=== PATIENT | male | born 1940 | race Caucasian/White ===

== ENCOUNTER → 2018-12-13 | Outpatient (CLI) | payer OTHER | END | disposition home or self-care (01) | LOC: RAH 09:19 → EDSTATUS 10:30 | PROVIDERS: ATTEND Family Medicine | DX: E04.2 Nontoxic multinodular goiter (principal); I12.9 Hypertensive chronic kidney disease with stage 1 through stage 4 chronic kidney disease, or unspecified chronic kidney disease; N18.3 Chronic kidney disease, stage 3 (moderate); J44.9 Chronic obstructive pulmonary disease, unspecified | CPT/HCPCS: 78014; A9516 ==

== ENCOUNTER 2020-04-03 11:00 | Inpatient (IN) | payer OTHER ==
[~2020-04-03] VITALS: Ht 188 cm; Wt 107.7 kg
[2020-04-03 11:36] LABS: BASOPHILS % (AUTO) 0.7 % (0.0-5.0); EOSINOPHILS % (AUTO) 1.7 % (0.0-8.0); HEMATOCRIT 43.4 % (42-54); LYMPHOCYTES % (AUTO) 15.4 % (21.0-51.0); MEAN CORPUSCULAR HEMOGLOBIN 30.6 pg (27.0-33.0); MEAN CORPUSCULAR HGB CONC 33.2 g/dL (32.0-36.0); MEAN CORPUSCULAR VOLUME 92.3 fL (79-99); MONOCYTES % (AUTO) 5.6 % (3.0-13.0); NEUTROPHILS % (AUTO) 76.1 % (40.0-77.0); PLATELET COUNT (AUTO) 142 K/uL (130-400); RED CELL DISTRIBUTION WIDTH 12.9 % (11.0-15.5); WHITE BLOOD COUNT (AUTO) 5.9 K/uL (4.8-10.8)
[2020-04-03 11:43] LABS: CREATININE 1.5 mg/dL (0.5-1.5); POTASSIUM 4.5 mmol/L (3.5-5.1)
[2020-04-03 11:47] LABS: ALBUMIN 3.8 g/dL (3.5-5.0); BILIRUBIN,TOTAL 0.8 mg/dL (0.2-1.0)
[2020-04-03] MEDS ORDERED: HEPARIN 25000 UNITS/250 ML D5W 250 ML IV ONE (14:49)
[2020-04-03] MEDS ORDERED: MORPHINE SULFATE 2 MG/ML 1ML SYG IV PRN (15:45)
[2020-04-03] MEDS ORDERED: ACETAMINOPHEN 325 MG TAB PO PRN ×2 (15:45)
[2020-04-03] MEDS ORDERED: ONDANSETRON HCL 4 MG/2 ML VIAL IV PRN (15:45)
[2020-04-03 16:16] LABS: CHOLESTEROL 136 mg/dL (<200); HDL CHOLESTEROL 95 mg/dL (29-71); LDL DIRECT 69 mg/dL (0-99); TRIGLYCERIDES 189 mg/dL (30-200)
[2020-04-03 20:25] VITALS: BP 152/91
--- NOTE | 2020-04-03 20:25 | NUR ---
ADMIT PATIENT ARRIVED FROM ED VIA BED. PATIENT AAOX3 WITH SOME SOB UPON MOVING TO ROOM BED. PATIENT WAS THEN PLACE ON OXYGEN VIA NASAL CANNULA. SATURATION AT 96 % WITH O2 LUNG SOUNDS TO RIGHT LUNG CLEAR, LEFT LUNG PARTIAL SOUNDS. PATIENT DOES HAVE HX OF LEFT UPPER AND PARTIAL LOWER LOBECTOMY. PATIENT BEING ADMITTED FOR A PE TO RIGHT LOWER LOBE. ED STAFF STARTED PATIENT ON HEPARIN DRIP WHICH WAS RUNNING AT 16.99 ML/HR. PATIENT WAS ORIENTED TO ROOM AND HOSPITAL. ALL QUESTIONS AND CONCERNS ADDRESSED.
[2020-04-03] MEDS: FAMOTIDINE/PF 20 MG/2 ML VIAL IV SCH (21:00)
[2020-04-03] MEDS ORDERED: EMPA10TA PO (21:10)
[2020-04-03] MEDS ORDERED: SIMV10TA97 PO (21:10)
[2020-04-03] MEDS ORDERED: LATA7.5D OU (21:10)
[2020-04-03] MEDS ORDERED: CETI10TA57 PO (21:10)
[2020-04-03] MEDS ORDERED: ALOG12.52 PO (21:10)
[2020-04-03] MEDS ORDERED: TRAZ-187 PO (21:10)
[2020-04-03] MEDS ORDERED: DORZ10DR19 OS (21:10)
[2020-04-03] MEDS ORDERED: SAXA2.5T PO (21:10)
[2020-04-03] MEDS ORDERED: BUDE10.26 IH (21:10)
[2020-04-03] MEDS ORDERED: CYAN100099 PO (21:10)
[2020-04-03 21:26] LABS: INR 1.02 (0.85-1.15)
[2020-04-03 21:34] LABS: PARTIAL THROMBOPLASTIN TIME > 120.0 SEC (26.3-35.5)
[2020-04-03] MEDS ORDERED: HEPARIN 25000 UNITS/250 ML D5W 250 ML IV SCH (22:30)
[2020-04-03 23:32] VITALS: BP 130/72
[2020-04-04 04:05] VITALS: BP 126/59
[2020-04-04 04:56] LABS: BASOPHILS % (AUTO) 0.3 % (0.0-5.0); EOSINOPHILS % (AUTO) 3.8 % (0.0-8.0); HEMATOCRIT 43.4 % (42-54); LYMPHOCYTES % (AUTO) 18.6 % (21.0-51.0); MEAN CORPUSCULAR HEMOGLOBIN 30.4 pg (27.0-33.0); MEAN CORPUSCULAR HGB CONC 32.5 g/dL (32.0-36.0); MEAN CORPUSCULAR VOLUME 93.5 fL (79-99); MONOCYTES % (AUTO) 8.5 % (3.0-13.0); NEUTROPHILS % (AUTO) 68.6 % (40.0-77.0); PLATELET COUNT (AUTO) 139 K/uL (130-400); RED BLOOD CELL COUNT(AUTO) 4.64 MIL/uL (4.50-6.20); WHITE BLOOD COUNT (AUTO) 5.8 K/uL (4.8-10.8)
[2020-04-04 05:07] LABS: ALBUMIN 3.5 g/dL (3.5-5.0); BILIRUBIN,TOTAL 0.8 mg/dL (0.2-1.0); CREATININE 1.3 mg/dL (0.5-1.5); POTASSIUM 5.2 mmol/L (3.5-5.1); TOTAL PROTEIN, SERUM 6.6 g/dL (6.0-8.3)
[2020-04-04 05:30] LABS: HEMOGLOBIN A1C 6.6 % (4.0-6.0)
[2020-04-04 07:00] VITALS: BP 151/92
[2020-04-04] MEDS: FAMOTIDINE/PF 20 MG/2 ML VIAL IV SCH ×2 (10:36→20:29)
[2020-04-04 11:00] VITALS: BP 134/77
--- NOTE | 2020-04-04 15:40 | NUR ---
DCP: [facility] met with pt who lives at home with Tiffani Argueta [phone]. Pt reports he is independent, pt uses [employer] for long distance related to his SOB and has no in home care services. Pt is seen at [facility] for medical care and meds. Plan is home at de. CM to follow and assist as needed Addendum: 04/04/20 at 1543 by JEVON GARCIA Amended: Links added.
[2020-04-04 16:00] VITALS: BP 151/91
--- NOTE | 2020-04-04 16:45 | NUR ---
PER DR. PIERRE D/C HEPARIN DRIP PT WILL START PO BLOOD THINNER ELIQUIS AT 9PM.
[2020-04-04] MEDS ORDERED: IPRATROPIUM/ALBUTEROL SULFATE 3 ML SOLUTION IH PRN (18:00)
[2020-04-04 19:40] VITALS: BP 141/85
[2020-04-04] MEDS: BUDESONIDE 0.5 MG/2 ML INH IH SCH (20:13)
[2020-04-04] MEDS: APIXABAN 5 MG TABLET PO SCH (20:29)
[2020-04-04] MEDS: DORZOLAMIDE HCL 2% 10ML DROPS OS SCH (20:29)
[2020-04-04] MEDS ORDERED: CETIRIZINE HCL 5 MG TABLET PO SCH (21:00)
[2020-04-04] MEDS ORDERED: SIMVASTATIN 10 MG TABLET PO SCH (21:00)
[2020-04-04] MEDS ORDERED: LATANOPROST 2.5 ML DROPS OU SCH (21:00)
[2020-04-04] MEDS ORDERED: TRAZODONE HCL 100 MG TABLET PO SCH (21:00)
[2020-04-04] MEDS: ALBUTEROL SULFATE 0.083% 2.5 MG/3 ML INH IH SCH (23:48)
[2020-04-04 23:52] VITALS: BP 161/76
[2020-04-05 04:05] VITALS: BP 125/70
--- NOTE | 2020-04-05 04:13 | NUR ---
PATIENT A/OX3, DENIES CHEST PAIN, SOB WITH EXERTION, ON 2L VIA NC. NO S/S OF BLEEDING. WILL CONTINUE TO MONITOR.
[2020-04-05] MEDS: ALBUTEROL SULFATE 0.083% 2.5 MG/3 ML INH IH SCH ×2 (05:39→11:06)
[2020-04-05] MEDS: BUDESONIDE 0.5 MG/2 ML INH IH SCH (05:46)
[2020-04-05 07:56] VITALS: BP 146/76
[2020-04-05] MEDS: FAMOTIDINE/PF 20 MG/2 ML VIAL IV SCH (08:56)
[2020-04-05] MEDS: APIXABAN 5 MG TABLET PO SCH (08:56)
[2020-04-05] MEDS ORDERED: ALOGLIPTIN BENZOATE 12.5 MG PO SCH (09:00)
[2020-04-05] MEDS ORDERED: EMPAGLIFLOZIN 10 MG PO SCH (09:00)
[2020-04-05] MEDS ORDERED: CYANOCOBALAMIN (VITAMIN B-12) 1,000 MCG TABLET PO SCH (09:00)
[2020-04-05] MEDS: DORZOLAMIDE HCL 2% 10ML DROPS OS SCH (09:00)
[2020-04-05] MEDS ORDERED: LINAGLIPTIN 5 MG TABLET PO SCH (09:00)
[2020-04-05 12:00] VITALS: BP 149/78
[2020-04-05] MEDS ORDERED: APIX5TAB PO (12:07)
[2020-04-05 12:28] LABS: INR 1.01 (0.85-1.15); PARTIAL THROMBOPLASTIN TIME 27.9 SEC (26.3-35.5); PROTHROMBIN TIME 10.9 SEC (9.6-11.6)
--- NOTE | 2020-04-05 15:00 | NUR ---
PATIENT READY FOR DISCHARGE HOME PER MD ORDERS. GAVE PATIENT DISCHARGE INSTRUCTIONS. GAVE PATIENT EDUCATION ON MEDICATIONS, PLAN OF CARE AND APPOINTMENTS. DISCONTINUED RIGHT ARM IV, APPLIED PRESSURE DRESSING. NO BLEEDING OR HEMATOMA NOTED. PATIENT TAKEN DOWNSTAIRS VIA WHEELCHAIR.
== END 2020-04-05 15:27 | disposition home or self-care (01) | DRG 175 ==
LOC: EDH 11:00 → EDHIP 11:01 → 4BH 20:25
PROVIDERS: ADMIT Family Medicine; ATTEND Family Medicine
DX: I26.99 Other pulmonary embolism without acute cor pulmonale (principal); J96.01 Acute respiratory failure with hypoxia; N17.9 Acute kidney failure, unspecified; E11.65 Type 2 diabetes mellitus with hyperglycemia; J30.2 Other seasonal allergic rhinitis; E66.9 Obesity, unspecified; G47.33 Obstructive sleep apnea (adult) (pediatric); J44.9 Chronic obstructive pulmonary disease, unspecified; I10 Essential (primary) hypertension; Z68.30 Body mass index [BMI] 30.0-30.9, adult; Z79.84 Long term (current) use of oral hypoglycemic drugs; Z87.891 Personal history of nicotine dependence; Z86.718 Personal history of other venous thrombosis and embolism; Z85.118 Personal history of other malignant neoplasm of bronchus and lung; Z83.6 Family history of other diseases of the respiratory system; Z82.41 Family history of sudden cardiac death; Z82.49 Family history of ischemic heart disease and other diseases of the circulatory system
CPT/HCPCS: 36415; 71045; 80053; 80061; 82948; 83036; 83880; 84484; 85025; 85610; 85730; 93005; 93306; 93356; 94640; 94664; G0378; J1644; J3490